=== PATIENT | male | born 1980 | race Caucasian/White ===

== ENCOUNTER 2016-12-17 10:46 | Emergency (ER) | payer OTHER ==
[~2016-12-17] VITALS: Ht 185.4 cm; Wt 139.0 kg
[~2016-12-17 10:46] MED LIST: HYDR-3533 PO
[2016-12-17 10:51] VITALS: BP 129/85; PULSE 78; RESP 16; TEMP 98.5; O2SAT 95
--- NOTE | 2016-12-17 11:22 | PD ---
HPI Chief Complaint: Injury Time Seen by Provider: 11:22 Travel History International Travel<30 days: No Contact w/Intl Traveler<30days: No Traveled to known affect area: No History of Present Illness HPI 36-year-old male presents the emergency department after an injury to the right left ring finger while playing football with his son. Patient states decreased range of motion and pain and swelling at the middle phalanx. He denies numbness or tingling distally to the injury site. His pain is a 6 out of 10. He has no other injury. He is allergic to penicillin. [facility] Past Medical History Medical History: Denies Significant Hx Diminished Hearing: No Influenza Vaccination: Yes ?: Not Past Surgical History Surgical History: No Previous Surgery Social History Alcohol Use: Yes Tobacco Use: No (cigars) Allergies-Medications (Allergen,Severity, Reaction): Coded Allergies: Penicillin (Verified Allergy, Mild, 12/17/16) Reported Meds & Prescriptions Reported Meds & Active Scripts Active Lortab (Hydrocodone-Acetaminophen) 5-325 Mg Tab 1-2 Tab PO Q6H PRN Review of Systems Except as stated in HPI: all other systems reviewed are Neg General / Constitutional: No: Fever Eyes: No: Visual changes HENT: No: Headaches Cardiovascular: No: Chest Pain or Discomfort Respiratory: No: Shortness of Breath Gastrointestinal: No: Abdominal Pain Genitourinary: No: Dysuria Musculoskeletal: Positive: Arthralgias, Limited ROM, Pain (see history of present illness.) Skin: No Rash Neurologic: No: Weakness Psychiatric: No: Depression Endocrine: No: Polydipsia Hematologic/Lymphatic: No: Easy Bruising Physical Exam Narrative GENERAL: Patient appears in mild distress. SKIN: Warm and dry. Normal color. Normal turgor. Patient has ecchymosis to the right mid ring finger with swelling. HEAD: Atraumatic. Normocephalic. EYES: Pupils equal and round. No scleral icterus. No injection or drainage. ENT: No nasal bleeding or discharge. Mucous membranes pink and moist. Pharynx is normal. NECK: Trachea midline. Neck is supple CARDIOVASCULAR: Regular rate and rhythm. RESPIRATORY: No accessory muscle use. MUSCULOSKELETAL: Extremities without clubbing, cyanosis, or edema. Patient has obvious deformity to the right mid ring finger consistent with either dislocation or fracture. Distal finger does not appear rotated. Range of motion is limited secondary to pain and swelling. MIP joint is normal. DIP joint is normal. Rest of his exam is unremarkable. NEUROLOGICAL: Awake and alert. No obvious cranial nerve deficits. Motor grossly within normal limits. Five out of 5 muscle strength in the arms and legs. Normal speech. PSYCHIATRIC: Appropriate mood and affect; insight and judgment normal. Data Data Last Documented VS Vital Signs Date Time Temp Pulse Resp B/P Pulse Ox O2 Delivery O2 Flow Rate FiO2 12/17/16 10:51 98.5 78 16 129/85 95 Orders Hand, Complete ([id number]) (12/17/16 11:15) Ice/Cold Pack (12/17/16 11:15) Lidocai-Epi 1%-1:100,000 Inj (Xylocaine- (12/17/16 12:15) Finger ([id number]) (12/17/16 12:33) MDM Medical Decision Making Medical Screen Exam Complete: Yes Emergency Medical Condition: Yes Differential Diagnosis Left ring finger sprain. Left finger dislocation. Left finger fracture. Narrative Course Patient is medically stable at time of exam. X-ray of the right ring finger is obtained. X-ray shows comminuted intra-articular and displaced fracture involving the right fourth digit at the base of the middle phalanx. The radiologist. Call was placed to Dr. Cantu, the hand surgeon and the patient is discussed. Recommend digital block and attempted reduction with partial reduction obtained on postreduction films. Patient is placed in a splint and will follow-up with Dr. Murdock's office week. Patient is given Lortab 5/325 one every 6 hours when necessary pain #12. Patient should ice this area frequently as much as possible. Work note is given. Diagnosis Primary Impression: Finger fracture, right Qualified Code: S62.609A - Finger fracture, right, closed, initial encounter Referrals: Tejal Murdock MD Patient Instructions: General Instructions Departure Forms: Work Release Enter return to work date: Dec 18, 2016 Special Instructions: Limited use of right hand until cleared by hand surgeon secondary to fracture of the right ring finger. Additional Instructions: Partial reduction obtained on postreduction films. Patient is placed in a splint and will follow-up with Dr. Murdock's office week. Patient is given Lortab 5/325 one every 6 hours when necessary pain #12. Patient should ice this area frequently as much as possible. Work note is given. Med/Other Pt SpecificInfo: Prescription(s) given Scripts Hydrocodone-Acetaminophen (Lortab)5-325 Mg Tab1-2 Tab PO Q6H PRN (PAIN) #12 TAB Prov:Gold Eaton MD 12/17/16 Disposition: 01 DISCHARGE HOME Condition: Stable Orion Coronado Dec 17, 2016 11:22
--- NOTE | 2016-12-17 12:09 | RADHPO ---
EXAM DATE/TIME: 12/17/2016 11:37 [facility] COMPARISON: No previous studies available for comparison. INDICATIONS : Right 4th finger pain after playing football MEDICAL HISTORY : None. SURGICAL HISTORY : None. ENCOUNTER: Initial ACUITY: 1 day PAIN SCORE: 8/10 LOCATION: Right 4th finger FINDINGS: 3 views of the right hand demonstrate a comminuted intra-articular fracture involving the fourth digi t middle phalanx with extension to the PIP joint. The distal portion of the middle phalanx is displac ed volarly there is significant adjacent soft tissue edema noted. The remainder the osseous structure s are intact. CONCLUSION: Comminuted intra-articular and displaced fracture involving the fourth digit at the base of the middl e phalanx. Ca Arnett MD on December 17, 2016 at 12:06 Board Certified Radiologist. This report was verified electronically.
[2016-12-17] MEDS ORDERED: LIDOCAINE 1%/EPINEPHrine 1:100,000 SOLN 20 ML VIAL INFIL ONE (12:15)
[2016-12-17] MEDS ORDERED: HYDR-3533 PO (13:31)
--- NOTE | 2016-12-17 13:36 | RADHPO ---
EXAM DATE/TIME: 12/17/2016 13:14 [facility] COMPARISON: HAND RIGHT COMPLETE ([id number]), December 17, 2016, 11:37. INDICATIONS : Post reduction right 4th finger MEDICAL HISTORY : None. SURGICAL HISTORY : None. ENCOUNTER: Subsequent ACUITY: 1 day PAIN SCORE: 0/10 LOCATION: Right 4th finger FINDINGS: 3 views of the right fourth digit demonstrate slight improvement in alignment of the comminuted intra -articular fracture involving the fourth digit at the base of the middle phalanx. CONCLUSION: Improved alignment. Ca Arnett MD on December 17, 2016 at 13:33 Board Certified Radiologist. This report was verified electronically.
[2016-12-21] MEDS ORDERED: IBUP200C PO (13:54)
[2016-12-21] MEDS ORDERED: IBUP800T23 PO (19:05)
[2016-12-21] MEDS ORDERED: NORC5TAB PO (19:05)
== END 2016-12-17 13:49 | disposition home or self-care (01) ==
LOC: PHEFT 10:46
DX: S62.624A Displaced fracture of middle phalanx of right ring finger, initial encounter for closed fracture (principal); X58.XXXA Exposure to other specified factors, initial encounter; Y93.61 Activity, american tackle football; Y92.9 Unspecified place or not applicable; Y99.8 Other external cause status
CPT/HCPCS: 26770; 73130; 73140

== ENCOUNTER → 2016-12-21 | Day surgery (SDC) | payer OTHER ==
[~2016-12-21] VITALS: Ht 185.4 cm; Wt 138.3 kg
[~2016-12-21] MED LIST changes: +BUPIVACAINE HCL PF 0.5% 30 ML VIAL ONE; +CHLORHEXIDINE GLUCONATE 2 % 1 PACK (2 CLOTHS) TOPICAL PRN; +CLINDAMYCIN INJ 900 MG in SODIUM CHLORIDE 0.9% INJ 100 ML IV SCH; +DEXAMETHASONE SOD PHOS 4 MG/ML VIAL ONE; +DEXT 5%-NACL 0.45% 1000 ML INJ 1,000 ML IV SCH; +DO NOT ADM ANY ANTICOAGULANT DRUGS PRN; +FAMOTIDINE 20 MG/2 ML VIAL ONE; +IBUP200C PO; +IBUP800T23 PO; +INSULIN HUMAN REGULAR 1,000 UNITS/10 ML VIAL SQ PRN; +LACTATED RINGER'S 1000 ML IV PRN; +METOCLOPRAMIDE HCL 10 MG/2 ML VIAL ONE; +METOPROLOL TARTRATE 25 MG TAB PO PRN; +MIDAZOLAM HCL 2 MG/2 ML VIAL ONE; +NEOSTIGMINE 3 MG/3 ML SYR IV ONE; +NORC5TAB PO; +ONDANSETRON HCL 4 MG/2 ML VIAL IV PUSH ONE; +POVIDONE IODINE 5% (ANTISEPSIS KIT) 4 APPLICATIONS EACH NARE PRN; +PROPOFOL 200 MG/20 ML AMP IV ONE; +SODIUM CHLORID 0.9% 500 ML IV PRN; +SODIUM CHLORIDE 0.9% FLUSH 5 ML FLUSH IVF PRN; +SODIUM CHLORIDE 0.9% FLUSH 5 ML FLUSH IVF SCH; +SODIUM CHLORIDE 0.9% INJ 100 ML ONE; +fentaNYL CITRATE 250 MCG/5 ML AMP ONE
[2016-12-21 13:39] VITALS: BP 130/86; PULSE 70; RESP 20; TEMP 98; O2SAT 95
[2016-12-21 14:04] LABS: BASOPHIL # 0.1 TH/MM3 (0-0.2); BASOPHIL % 0.6 % (0.0-2.0); EOSINOPHIL # 0.1 TH/MM3 (0-0.4); EOSINOPHIL % 1.3 % (0.0-4.0); HEMATOCRIT 48.7 % (39.0-51.0); HEMO FLAGS DIFF FINAL; LYMPH % 25.1 % (9.0-44.0); LYMPHOCYTE # 2.3 TH/MM3 (1.0-4.8); MEAN CELL VOLUME 84.6 FL (80.0-100.0); MEAN CORPUSCULAR HGB CONC 34.3 % (32.0-36.0); MONO % 6.8 % (0.0-8.0); NEUT % 66.2 % (16.0-70.0); PLATELET COUNT 231 TH/MM3 (150-450); RED BLOOD COUNT 5.75 MIL/MM3 (4.50-5.90); RED CELL DISTRIBUTION WIDTH 12.8 % (11.6-17.2); WHITE BLOOD COUNT 9.1 TH/MM3 (4.0-11.0)
--- NOTE | 2016-12-21 19:07 | HHI.PR ---
Immediate Post Op Note Procedure Date: Dec 21, 2016 Pre Op Diagnosis: (1) Finger fracture, right Post Op Diagnosis: (1) Finger fracture, right Surgeon: Tejal Murdock Varnisher Apprentice(s): None. Procedure: Open reduction and internal fixation of the right ring finger middle phalanx articular fracture. Anesthesia: General Drains: None Tourniquet time (min at mmHg) 130 minutes at 250 mmHg Patient to: PACU Patient Condition: Good Implant/Devices: SEE IMPLANT LOG (if applicable) Date/Time of Procedure: SEE SURGICAL CARE RECORD Tejal Murdock MD Dec 21, 2016 19:07
[2016-12-21 20:00] VITALS: TEMP 97.5
[2016-12-21 20:20] VITALS: BP 104/70; PULSE 93; RESP 16; O2SAT 94
--- NOTE | 2016-12-26 10:46 | MP ---
cc: JORGE RICH M.D. DATE OF OPERATION 12/21/2016 PREOPERATIVE DIAGNOSIS Displaced articular fracture of the right ring finger middle phalanx at the PIP joint. POSTOPERATIVE DIAGNOSIS Displaced articular fracture of the right ring finger middle phalanx at the PIP joint. PROCEDURE Open reduction, internal fixation of the right ring finger middle phalanx articular fracture. ANESTHESIA General. SURGEON Dr. Rich INDICATIONS A 36-year-old male who sustained an injury to the finger as noted above. FINDINGS At the completion of the procedure the reduction appeared to be anatomic, held in place with two screws and also supported with an L4-5 K-wire. TOURNIQUET TIME 130 minutes. PROCEDURE The patient was seen preoperatively where the site and side were identified and marked. The patient was then taken to the operating room, placed in supine position. His identity was checked against the arm band and the consent form, site and side confirmed, time-out called prior to beginning the procedure. The right upper extremity was prepped with Hibiclens and draped in usual sterile fashion. The area to be incised was outlined with a marking pen as a zigzag incision over the palmar surface of the ring finger over the PIP joint. The arm was exsanguinated and the tourniquet inflated to 250 mmHg. A #15 blade was used make the incision down through skin, down to the subcutaneous tissue. Under loupe magnification flaps were elevated and raised exposing the tendon sheath which was then opened. The tendons were retracted exposing the area of the fracture. The volar plate was divided and the fracture fragments were identified. Attempt was made at reduction but there was tissue interposed between the dorsal fragment. A separate incision was then made dorsally over the middle phalanx and the PIP joint in a zigzag fashion, down through the skin, down to the subcutaneous tissue. The fracture fragments were identified and the extensor tendon which was slightly from adjacent surrounding structures. The area was debrided of clot and bone fragments and was reduced into an anatomic position. A hole was drilled and a 1.5-mm diameter screw 9-mm was placed in this gave adequate reduction. The second screw was placed a little more distally. This is a 1.3-mm screw. This was also a 9-mm in length. Once it was ascertained that there was adequate reduction, this was confirmed with the mini C-arm. The wound was copiously irrigated with saline. The soft tissue was allowed to fall back into place and the wound was closed with interrupted and running 5-0 nylon suture. An 0.045 K-wire was placed across the middle phalanx into the proximal phalanx to stabilize the major fragments for healing. The finger was anesthetized at the beginning of the procedure with bupivacaine 0.5% plain. Once the wound was closed and there was excellent fixation and reduction the tourniquet was released after 130 minutes of tourniquet time. Pressure was applied. After several minutes there was no evidence of any oozing. A dressing was applied using povidone-iodine ointment, Adaptic, Telfa, 4x4s hand wrap and a palmar splint to keep the hand in place, Webril was also use. The patient was then taken from the operating room to the recovery room in satisfactory condition having tolerated the procedure well. Postoperative instructions include keeping the arm elevated, keeping it clean and dry and returning next week for followup. The patient was given a prescription for Harbert and ibuprofen. MD MADY Ferrari/GENESIS /7:11 PM /10:33 AM
== END | disposition home or self-care (01) ==
LOC: HSDC 12:42
PROVIDERS: ATTEND Specialist
DX: S62.624A Displaced fracture of middle phalanx of right ring finger, initial encounter for closed fracture (principal); X58.XXXA Exposure to other specified factors, initial encounter; Y93.61 Activity, american tackle football
CPT/HCPCS: 01830; 26746; 76000; 85025; C1713; J1100; J2250; J2405; J2710; J2765; J3010